=== PATIENT | male | born 2000 ===

== ENCOUNTER 2024-02-22 17:00 | Emergency (ER) | payer SELFPAY ==
[2024-02-22] MEDS: Ondansetron 4 MG Tab.DIS PO ONE (18:25)
== END 2024-02-22 18:31 | disposition home or self-care (01) ==
LOC: DL.ED 17:00
DX: S39.94XA Unspecified injury of external genitals, initial encounter (principal); R11.2 Nausea with vomiting, unspecified; X58.XXXA Exposure to other specified factors, initial encounter
CPT/HCPCS: 76870; 99282; 99284; A9270-GY